=== PATIENT | male | born 1990 | race Asian ===

== ENCOUNTER 2020-04-25 16:34 | Emergency (ER) | payer OTHER ==
[~2020-04-25] VITALS: Ht 180.3 cm; Wt 96.6 kg
[2020-04-25 16:34] VITALS: TEMP 98.9
[2020-04-25 16:56] LABS: PLATELET COUNT 785 K/uL (142-355)
[2020-04-25 17:09] LABS: POTASSIUM 3.8 mmol/L (3.6-5.2)
[2020-04-25 17:39] VITALS: BP 130/69
== END 2020-04-25 17:39 | disposition short-term general hospital (02) ==
LOC: ED 16:42
PROVIDERS: Emergency Medicine Emergency Medical Services
DX: I21.3 ST elevation (STEMI) myocardial infarction of unspecified site (principal); F17.210 Nicotine dependence, cigarettes, uncomplicated
CPT/HCPCS: 80053; 84484; 85027; 85610; 85730; 93005; 96360; 96361; 96375; 99285; J1644; J2270